=== PATIENT | female | born 1950 | race Caucasian/White ===

== ENCOUNTER → 2017-07-26 | Day surgery (SDC) | payer MEDICARE ==
[~2017-07-26] VITALS: Ht 160 cm; Wt 51.5 kg
[~2017-07-26] MED LIST: BACITRACIN TOP OINT 15 GM TUBE ONE; BUPIVACAINE/EPINEPHRINE 0.25% PF 30 ML VIAL ONE; CHLORHEXIDINE GLUCONATE 2 % 1 PACK (2 CLOTHS) TOPICAL PRN; INSULIN HUMAN REGULAR 1,000 UNITS/10 ML VIAL SQ PRN; LACTATED RINGER'S 1000 ML IV PRN; LIDOCAINE 1%/EPINEPHrine 1:100,000 SOLN 20 ML VIAL ONE; METOPROLOL TARTRATE 25 MG TAB PO PRN; MIDAZOLAM HCL 2 MG/2 ML VIAL ONE; MORPHINE SULFATE 2 MG/ML INJ ONE; POVIDONE IODINE 5% (ANTISEPSIS KIT) 4 APPLICATIONS EACH NARE PRN; SODIUM BICARBONATE 8.4% INJ 0 ML ONE; SODIUM CHLORID 0.9% 500 ML IV PRN; ceFAZolin 2 GM PREMIX 50 ML IV SCH
[2017-07-26 10:45] VITALS: BP 121/64; PULSE 67; RESP 16; TEMP 97.9; O2SAT 98
--- NOTE | 2017-07-26 11:28 | MP ---
cc: NIC SORIANO DATE OF SURGERY 07/26/2017 PREOPERATIVE DIAGNOSIS Right breast mass, discordant needle biopsy. POSTOPERATIVE DIAGNOSIS Right breast mass, discordant needle biopsy. PROCEDURE Excisional breast biopsy of right breast mass. ATTENDING SURGERY Nic Soriano MD MANAGER [employer] Staff ANESTHESIA General and local anesthetic COMPLICATIONS None BLOOD LOSS Less than 10 cc. FINDINGS The main mass portion of the lesion and overlying skin excised with clearly some gross positive margins at the edges of the biopsy site due to the extremely large nature of the overall process of the of the breast precluding complete excision due to the size of the mass. INDICATIONS FOR PROCEDURE The patient is a 56-year-old female who recently noticed a right breast mass on self-exam. The patient had not been undergoing routine mammograms and presented to her primary care doctor. Mammogram showed a BI-RADS lesion on the right and ultrasound guided biopsy revealed a benign diagnosis. An MRI was also performed of the bilateral breasts and showed a BI-RADS 4 lesion of the right breast and this was felt to be discordant based on the high suspicion for malignancy on the MRI. The patient was referred to surgery for excisional breast biopsy. There is a large area of the mass encompassing almost the complete right side of the right breast approximately 50% of breast. The main central portion of the mesh was excised for the procedure and this was discussed with the patient including the risks, benefits, and alternatives and she agreed to undergo the procedure. PROCEDURE The patient was taken to the operating room at [facility], placed under general anesthesia with an LMA airway. The right breast was prepped and draped in a sterile fashion. Time-out was performed. Local anesthetic was instilled in the area of the right lateral breast near the area of a previous underlying skin. We did excise the overlying skin which was seen to be involved in the process and took the dissection down using a scalpel, as well as Metzenbaum scissors to the central main portion of this right breast mass. This was completely excised again with Metzenbaum scissors and passed off for permanent processing. There is a clear process and mass type multifocal process was clearly still present, but to excised this whole area would essentially require basically a mastectomy and this was not indicated as we did not have a malignant diagnosis or a plan for this treatment. We then closed the incision with a 3-0 Vicryl, 4-0 Monocryl and Dermabond after we had ensure good hemostasis with electrocautery. The patient was discontinued from anesthesia and taken to the PACU in stable condition. The patient tolerated the procedure well. No apparent complications. All counts were correct and I was present and scrubbed for the entire procedure. MD SUNDAR Griffith/DENA /9:06 AM /11:21 AM
--- NOTE | 2017-07-26 18:03 | EKG ---
Date Performed: 07/26/2017 Time Performed: 06:53:48 PTAGE: 66 years EKG: Sinus rhythm NORMAL ECG PREVIOUS TRACING : 07/01/2001 17.51 DOCTOR: Edy Miranda Interpretating Date/Time 07/26/2017 18:00:31
== END | disposition home or self-care (01) ==
LOC: PHSDC 06:10
PROVIDERS: ATTEND Surgery
DX: N63.10 Unspecified lump in the right breast, unspecified quadrant (principal); M88.9 Osteitis deformans of unspecified bone; Z01.810 Encounter for preprocedural cardiovascular examination
CPT/HCPCS: 00400; 19120; 93005; J0690; J2250; J2270; J3010; J7120; 88305; 88361